=== PATIENT | male | born 1960 | race American Indian/Alaskan Native ===

== ENCOUNTER 2016-06-18 10:49 | Outpatient (CLI) | payer OTHER ==
--- NOTE | 2016-06-18 14:53 | XRay Report ---
CHEST 2 VIEWS INDICATION: Malaise. History of malignant neoplasm of unspecified site/oral cavity. COMPARISON: 06/14/2012 FINDINGS: Frontal and lateral chest radiographs demonstrate poorer inspiration with bibasilar densities, right more than left, representing atelectasis/scarring. Right hemidiaphragm mildly elevated. Stable cardiomediastinal silhouette and clear remainder lungs without large pleural effusions or CHF. Few tiny BB densities again project within the left lateral chest wall soft tissues. Stable bones. CONCLUSION: Findings, as above. Thank you for the opportunity to participate in this patient's care.
== END 2016-06-18 10:50 | disposition home or self-care (01) ==
LOC: SPVIMAG 10:49
PROVIDERS: ATTEND Internal Medicine Hematology & Oncology
DX: R53.81 Other malaise (principal); Q79.1 Other congenital malformations of diaphragm; Z85.819 Personal history of malignant neoplasm of unspecified site of lip, oral cavity, and pharynx
CPT/HCPCS: 71020